=== PATIENT | male | born 1965 | race African-American/Black ===

== ENCOUNTER 2019-06-09 | Emergency (ER) | payer OTHER ==
[~2019-06-09] MED LIST: ACCUPRIL5 MG PO; DOXYCYCL HYC100 MG PO; NAPROSYN500 MG PO; PENICILLIN V P500 MG PO
[2019-06-09] MEDS ORDERED: FLEXERIL5 MG PO (11:13)
[2019-06-09] MEDS ORDERED: MORPHINE SUL30 M3 PO (11:13)
[2019-06-09] MEDS ORDERED: DILAUDID8 MG PO (11:15)
[2019-06-09] MEDS ORDERED: BP MED (11:16)
[2019-06-09 13:27] LABS: URINE BILIRUBIN - DIPSTICK NEGATIVE (NEGATIVE); URINE BLOOD DIPSTICK SMALL (NEGATIVE); URINE CLARITY CLEAR; URINE COLOR YELLOW; URINE GLUCOSE - DIPSTICK NEGATIVE (NEGATIVE); URINE KETONE NEGATIVE (NEGATIVE); URINE LEUK ESTERASE NEGATIVE (Negative); URINE NITRITE - DIPSTICK NEGATIVE (Negative); URINE PROTEIN - DIPSTICK NEGATIVE (NEG-TRACE); URINE UROBILINOGEN - DIPSTICK 0.2 E.U./dL (0.2)
[2019-06-09 13:30] LABS: URINE RBC 0-2 RBC/hpf (0-5); URINE WBC 0-2 WBC/hpf (0-5)
== END 2019-06-09 13:12 | disposition home or self-care (01) | DRG 552 ==
DX: M54.5 Low back pain (principal); M54.6 Pain in thoracic spine; I10 Essential (primary) hypertension; F17.210 Nicotine dependence, cigarettes, uncomplicated; W11.XXXA Fall on and from ladder, initial encounter; Y93.89 Activity, other specified; Y92.89 Other specified places as the place of occurrence of the external cause; Y99.0 Civilian activity done for income or pay

== ENCOUNTER 2020-01-13 16:44 | Emergency (ER) | payer SELFPAY ==
[~2020-01-13] VITALS: Ht 188 cm; Wt 102.0 kg
[~2020-01-13 16:44] MED LIST changes: +BP MED; +DILAUDID8 MG PO; +FLEXERIL5 MG PO; +MORPHINE SUL30 M3 PO
[2020-01-13] MEDS ORDERED: VALIUM (17:11)
[2020-01-13] MEDS ORDERED: CEPHALEXIN500 M1 PO (18:07)
[2020-01-13 18:20] VITALS: BP 158/78
== END 2020-01-13 18:20 | disposition left against medical advice (07) | DRG 605 ==
LOC: ED 16:44
DX: S61.411A Laceration without foreign body of right hand, initial encounter (principal); I10 Essential (primary) hypertension; F17.200 Nicotine dependence, unspecified, uncomplicated; W45.8XXA Other foreign body or object entering through skin, initial encounter; Y93.89 Activity, other specified; Y92.009 Unspecified place in unspecified non-institutional (private) residence as the place of occurrence of the external cause; Z91.19 Patient's noncompliance with other medical treatment and regimen